=== PATIENT | male | born 1980 | race Caucasian/White ===

== ENCOUNTER → 2018-08-22 | Outpatient (CLI) | payer OTHER ==
--- NOTE | 2018-08-22 15:27 | 2DMMODE ---
[facility] [place] [address] 2 D/M-MODE ECHOCARDIOGRAM Name: EVELYN DELGADO Room #: PRE [facility]#: [id number] ������������� Admission: ������������� Attend Phys: Luis Padilla, Discharge: ��� ������������� ��� Date of : 76 Date of Service: 08/22/18 1527 �� Report #: [id number] �������� ��������������������������������������������[id number] THIS REPORT FOR: //name// APPROVED REPORT Study performed: 08/22/2018 14:46:25 EXAM: Comprehensive 2D, Doppler, and color-flow Echocardiogram Patient Location: Out-Patient Status: routine BSA: 2.24 HR: 93 bpm BP: 126/80 mmHg Rhythm: NSR Other Information Study Quality: Good Indications Palpitations Tachycardia Hx: HLP, DM 2D Dimensions RVDd: 37.33 mm IVSd: 10.85 (7-11mm) LVOT Diam: 22.23 (18-24mm) LVDd: 41.45 mm PWd: 11.18 (7-11mm) Ascending Ao: 32.98 (22-36mm) LVDs: 24.13 (25-40mm) Aortic Root: 34.63 mm Volumes Left Atrial Volume (Systole) Single Plane 4CH: 38.78 mL Single Plane 2CH: 42.98 mL LA ESV Index: 20.00 mL/m2 Aortic Valve AoV Peak Tank.: 1.47 m/s AO Peak Gr.: 8.59 mmHg LVOT Max P.19 mmHg LVOT Max V: 1.24 m/s KENA Vmax: 3.29 cm2 Mitral Valve E/A Ratio: 1.6 [facility] [address] [place] [address] 2 D/M-MODE ECHOCARDIOGRAM Name: EVELYN DELGADO Room #: PRE [facility]#: [id number] ������������� Admission: ������������� Attend Phys: Luis Padilla, Discharge: ��� ������������� ��� Date of : 76 Date of Service: 08/22/18 1527 �� Report #: [id number] �������� ��������������������������������������������[id number] MV Decel. Time: 163.68 ms MV E Max Tank.: 1.01 m/s MV A Tank.: 0.63 m/s MV PHT: 47.47 ms IVRT: 55.36 ms Pulmonary Valve PV Peak Tank.: 1.10 m/s PV Peak Gr.: 4.86 mmHg Pulmonary Vein P Vein S: 0.61 m/s P Vein A: 0.38 m/s P Vein D: 0.58 m/s P Vein A Dur.: 107.3 msec P Vein S/D Ratio: 1.05 Tricuspid Valve TR Peak Tank.: 1.70 m/s RAP Estimate: 5.00 mmHg TR Peak Gr.: 11.00 mmHg PA Pressure: 16.00 mmHg Left Ventricle The left ventricle is normal size. There is normal LV segmental wall motion. Mild concentric left ventricular hypertrophy. Left ventricular systolic function is normal. LVEF is 60-65%. The left ventricular diastolic function is normal. Right Ventricle The right ventricle is normal size. The right ventricular systolic function is normal. Atria The left atrium size is normal. The right atrium size is normal. Aortic Valve The aortic valve is normal in structure. No aortic regurgitation is present. There is no aortic valvular stenosis. Mitral Valve The mitral valve is normal in structure. Trace mitral regurgitation. Tricuspid Valve The tricuspid valve is normal in structure. Trace tricuspid regurgitation. Estimated PAP is 15-20mmHg. Pulmonic Valve [facility] [place] [address] 2 D/M-MODE ECHOCARDIOGRAM Name: EVELYN DELGADO Room #: [facility].#: [id number] ������������� Admission: ������������� Attend Phys: Luis Padilla, Discharge: ��� ������������� ��� Date of : 76 Date of Service: 08/22/18 1527 �� Report #: [id number] �������� ��������������������������������������������[id number] The pulmonary valve is normal in structure. Trace pulmonic regurgitation. Great Vessels The aortic root is normal in size. The ascending aorta is normal in size. IVC is normal in size and collapses >50% with inspiration. Pericardium There is no pericardial effusion. <Conclusion> Left ventricular systolic function is normal. There is normal LV segmental wall motion. LVEF is 60-65%. Normal diastolic function The aortic valve is normal in structure. No aortic regurgitation or stenosis The mitral valve is normal in structure. Trace mitral regurgitation. Trace tricuspid regurgitation. Estimated PAP of 15-20mmHg. There is no pericardial effusion. ��������������������������������������������� <ELECTRONICALLY SIGNED> ���������������������������������������� By: Luis Padilla MD, [facility] ��������������������������������������������� 08/22/18 1527 1527 1527 Luis Padilla MD, FACC /INF
== END ==
LOC: CV 07:56
DX: I51.7 Cardiomegaly (principal)